=== PATIENT | female | born 1965 | race Caucasian/White ===

== ENCOUNTER → 2019-12-05 07:51 | Outpatient (BNVA) | payer OTHER, SELFPAY | PROVIDERS: PCP Specialist; Visit Provider Specialist | DX: G10 Huntington's disease (principal); F02.80 Dementia in other diseases classified elsewhere, unspecified severity, without behavioral disturbance, psychotic disturbance, mood disturbance, and anxiety; R29.90 Unspecified symptoms and signs involving the nervous system | CPT/HCPCS: 99213 ==

== ENCOUNTER → 2020-11-28 08:07 | Outpatient (BNVA) | payer BC, SELFPAY | PROVIDERS: PCP Specialist; Visit Provider Specialist | DX: G10 Huntington's disease (principal); Z71.89 Other specified counseling | CPT/HCPCS: 99214 ==